=== PATIENT | female | born 1950 | race African-American/Black ===

== ENCOUNTER 2021-08-05 21:56 | Inpatient (IN) | payer MEDICARE, OTHER ==
[~2021-08-05] VITALS: Ht 175.3 cm; Wt 82.1 kg
[2021-08-05 22:00] VITALS: BP 144/61
[2021-08-05] MEDS ORDERED: MAGNESIUM HYDROXIDE 400MG/5ML 30ML UDC PO PRN (22:45)
[2021-08-05] MEDS ORDERED: TRAMADOL 50MG TABLET PO PRN (22:45)
[2021-08-05] MEDS ORDERED: DIPHENHYDRAMINE 25MG CAPSULE PO PRN (22:45)
[2021-08-05] MEDS ORDERED: MELATONIN 3MG TABLET PO SCH (22:45)
[2021-08-05] MEDS ORDERED: DOCUSATE SODIUM 100MG CAPSULE PO SCH (22:45)
[2021-08-05] MEDS ORDERED: CLONIDINE 0.1MG TABLET PO PRN (22:45)
[2021-08-05] MEDS ORDERED: SENNOSIDES 8.6MG TABLET PO PRN (22:45)
[2021-08-05] MEDS ORDERED: DIPHENHYDRAMINE 50MG/ML VIAL IV PRN (22:45)
[2021-08-05] MEDS ORDERED: BISACODYL 10MG SUPP PR PRN (22:45)
[2021-08-05] MEDS ORDERED: LIDOCAINE 5% PATCH TOP PRN (22:45)
[2021-08-05] MEDS ORDERED: ACETAMINOPHEN 650MG SUPP PR PRN (22:45)
[2021-08-05] MEDS ORDERED: ACETAMINOPHEN 325MG TABLET PO PRN (22:45)
[2021-08-05 23:13] VITALS: BP 144/61
[2021-08-06] MEDS ORDERED: MELATONIN 3MG TABLET PO PRN (00:30)
[2021-08-06 07:42] VITALS: BP 132/62
[2021-08-06 07:46] LABS: BASOPHILS % 0.8 % (0.0-2.0); EOSINOPHILS % 0.5 % (0.0-5.0); HEMATOCRIT. 31.9 % (36.0-48.0); HEMOGLOBIN. 10.8 g/dL (12.0-16.0); LYMPHOCYTES % 22.3 % (20.0-50.0); MEAN CORPUSCULAR HEMOGLOBIN 27.7 pg (28.0-32.0); MEAN CORPUSCULAR VOLUME 81.5 fL (81.0-99.0); MEAN PLATELET VOLUME 8.5 fl (7.4-10.4); MONOCYTES % 6.3 % (2.0-8.0); NEUTROPHILS % 70.1 % (40.0-76.0); PLATELET 105 x1000/uL (130-400); RED BLOOD CELL COUNT 3.91 mill/uL (4.2-5.4); RED CELL DISTRIBUTION WIDTH 14.4 % (11.6-14.6)
[2021-08-06 07:51] LABS: CHLORIDE 107 mEq/L (98-107)
[2021-08-06] MEDS: POLYETHYLENE GLYCOL 3350 (17GM) 1 DOSE PACK PO SCH ×2 (09:00→09:16)
[2021-08-06] MEDS: DOCUSATE SODIUM 100MG CAPSULE PO SCH ×2 (09:15→20:25)
[2021-08-06] MEDS: METOPROLOL TARTRATE 25MG TABLET PO SCH ×2 (09:16→16:03)
[2021-08-06] MEDS: AMLODIPINE 10MG TABLET PO SCH (09:16)
[2021-08-06] MEDS: HEPARIN 5000 UNITS/ML VIAL SUBCUT SCH ×2 (09:22→20:26)
[2021-08-06] MEDS ORDERED: SODIUM POLYSTYRENE SULFONATE 15 G/60 ML BOT PO NR (11:00)
[2021-08-06 15:04] LABS: CLARITY URINE CLEAR (CLEAR); COLOR URINE YELLOW (YELLOW); KETONES URINE NEGATIVE (NEGATIVE); LEUKOCYTE ESTERASE URINE NEGATIVE (NEGATIVE); NITRITE URINE NEGATIVE (NEGATIVE); OCCULT BLOOD URINE NEGATIVE (NEGATIVE); PROTEIN URINE TRACE (NEGATIVE); UROBILINOGEN URINE 0.2 E.U./dL (0.2-1.0)
[2021-08-06 20:00] VITALS: BP 134/62
[2021-08-06] MEDS: ATORVASTATIN CALCIUM 40MG TABLET PO SCH (20:26)
[2021-08-07 07:57] LABS: BASOPHILS % 0.8 % (0.0-2.0); EOSINOPHILS % 0.5 % (0.0-5.0); HEMATOCRIT. 31.5 % (36.0-48.0); HEMOGLOBIN. 10.8 g/dL (12.0-16.0); LYMPHOCYTES % 21.1 % (20.0-50.0); MEAN CORPUSCULAR HEMOGLOBIN 27.5 pg (28.0-32.0); MEAN CORPUSCULAR VOLUME 80.4 fL (81.0-99.0); MONOCYTES % 4.8 % (2.0-8.0); NEUTROPHILS % 72.8 % (40.0-76.0); PLATELET 77 x1000/uL (130-400); RED BLOOD CELL COUNT 3.91 mill/uL (4.2-5.4); RED CELL DISTRIBUTION WIDTH 14.8 % (11.6-14.6)
[2021-08-07 08:00] VITALS: BP 133/82
[2021-08-07 08:02] LABS: CHLORIDE 110 mEq/L (98-107)
[2021-08-07 08:16] LABS: TOTAL IRON BINDING CAPACITY 413 ug/dL (250-450)
[2021-08-07] MEDS: DOCUSATE SODIUM 100MG CAPSULE PO SCH ×2 (09:00→21:00)
[2021-08-07] MEDS: POLYETHYLENE GLYCOL 3350 (17GM) 1 DOSE PACK PO SCH (09:00)
[2021-08-07] MEDS: AMLODIPINE 10MG TABLET PO SCH (09:27)
[2021-08-07] MEDS: METOPROLOL TARTRATE 25MG TABLET PO SCH ×2 (09:27→17:12)
[2021-08-07] MEDS: ALLOPURINOL 100 MG TABLET PO SCH (09:27)
[2021-08-07 09:28] LABS: FOLIC ACID (FOLATE) SERUM 6.8 ng/mL (>5.38)
[2021-08-07] MEDS: HEPARIN 5000 UNITS/ML VIAL SUBCUT SCH (09:28)
[2021-08-07] MEDS: CYANOCOBALAMIN 1000MCG/ML VIAL IM SCH (12:17)
[2021-08-07 20:00] VITALS: BP 132/80
[2021-08-07] MEDS: ATORVASTATIN CALCIUM 40MG TABLET PO SCH (21:17)
[2021-08-07] MEDS: IRON SUCROSE COMPLEX 100 MG/5 ML ML IV SCH (22:23)
[2021-08-07 22:28] LABS: ETHANOL BLOOD < 10 mg/dL
[2021-08-08 05:48] LABS: BASOPHILS % 0.8 % (0.0-2.0); EOSINOPHILS % 0.7 % (0.0-5.0); HEMATOCRIT. 29.4 % (36.0-48.0); LYMPHOCYTES % 20.2 % (20.0-50.0); MEAN CORPUSCULAR HEMOGLOBIN 27.3 pg (28.0-32.0); MEAN CORPUSCULAR VOLUME 80.4 fL (81.0-99.0); MEAN PLATELET VOLUME 8.7 fl (7.4-10.4); MONOCYTES % 8.1 % (2.0-8.0); NEUTROPHILS % 70.2 % (40.0-76.0); PLATELET 78 x1000/uL (130-400); RED BLOOD CELL COUNT 3.65 mill/uL (4.2-5.4); RED CELL DISTRIBUTION WIDTH 14.7 % (11.6-14.6)
[2021-08-08 08:00] VITALS: BP 132/59
[2021-08-08] MEDS: POLYETHYLENE GLYCOL 3350 (17GM) 1 DOSE PACK PO SCH (09:00)
[2021-08-08] MEDS: DOCUSATE SODIUM 100MG CAPSULE PO SCH ×2 (10:41→21:26)
[2021-08-08] MEDS: METOPROLOL TARTRATE 25MG TABLET PO SCH ×2 (10:42→18:00)
[2021-08-08] MEDS: AMLODIPINE 10MG TABLET PO SCH (10:43)
[2021-08-08] MEDS: CYANOCOBALAMIN 1000MCG/ML VIAL IM SCH (10:43)
[2021-08-08] MEDS ORDERED: BARIUM SULFATE 176 GM SUSP.RECON ONE (10:54)
[2021-08-08] MEDS: IRON SUCROSE COMPLEX 100 MG/5 ML ML IV SCH (15:34)
[2021-08-08 20:00] VITALS: BP 139/63
[2021-08-08] MEDS: LACTULOSE 20G/30ML UDC PO SCH (21:26)
[2021-08-08] MEDS: ATORVASTATIN CALCIUM 40MG TABLET PO SCH (21:26)
[2021-08-09] MEDS: LACTULOSE 20G/30ML UDC PO SCH ×3 (06:00→20:58)
[2021-08-09 08:00] VITALS: BP 125/61
[2021-08-09] MEDS ORDERED: SODIUM POLYSTYRENE SULFONATE 15 G/60 ML BOT PO NR (08:30)
[2021-08-09] MEDS: POLYETHYLENE GLYCOL 3350 (17GM) 1 DOSE PACK PO SCH (09:00)
[2021-08-09] MEDS: ALLOPURINOL 100 MG TABLET PO SCH (09:50)
[2021-08-09] MEDS: CYANOCOBALAMIN 1000MCG/ML VIAL IM SCH (09:50)
[2021-08-09] MEDS: METOPROLOL TARTRATE 25MG TABLET PO SCH ×2 (09:51→17:30)
[2021-08-09] MEDS: AMLODIPINE 10MG TABLET PO SCH (09:51)
[2021-08-09] MEDS: DOCUSATE SODIUM 100MG CAPSULE PO SCH ×2 (09:51→20:59)
[2021-08-09] MEDS: IRON SUCROSE COMPLEX 100 MG/5 ML ML IV SCH (13:16)
[2021-08-09 20:00] VITALS: BP 138/63
[2021-08-09] MEDS: ATORVASTATIN CALCIUM 40MG TABLET PO SCH (20:58)
[2021-08-10] MEDS: LACTULOSE 20G/30ML UDC PO SCH ×2 (06:00→13:55)
[2021-08-10 06:17] LABS: BASOPHILS % 0.6 % (0.0-2.0); EOSINOPHILS % 0.5 % (0.0-5.0); HEMATOCRIT. 29.9 % (36.0-48.0); HEMOGLOBIN. 10.6 g/dL (12.0-16.0); LYMPHOCYTES % 12.8 % (20.0-50.0); MEAN CORPUSCULAR HEMOGLOBIN 28.8 pg (28.0-32.0); MEAN CORPUSCULAR VOLUME 81.2 fL (81.0-99.0); MEAN PLATELET VOLUME 9.1 fl (7.4-10.4); MONOCYTES % 5.3 % (2.0-8.0); NEUTROPHILS % 80.8 % (40.0-76.0); PLATELET 76 x1000/uL (130-400); RED BLOOD CELL COUNT 3.68 mill/uL (4.2-5.4)
[2021-08-10 06:27] LABS: CHLORIDE 108 mEq/L (98-107)
[2021-08-10 08:00] VITALS: BP 132/61
[2021-08-10] MEDS: METOPROLOL TARTRATE 25MG TABLET PO SCH ×2 (09:40→17:00)
[2021-08-10] MEDS: AMLODIPINE 10MG TABLET PO SCH (09:41)
[2021-08-10] MEDS: DOCUSATE SODIUM 100MG CAPSULE PO SCH ×2 (09:41→20:45)
[2021-08-10] MEDS: POLYETHYLENE GLYCOL 3350 (17GM) 1 DOSE PACK PO SCH (09:41)
[2021-08-10] MEDS ORDERED: ALBUTEROL (0.083%) 2.5MG/3ML NEB HHN NR (11:00)
[2021-08-10] MEDS ORDERED: NALOXONE HCL 0.4MG/ML VIAL IV PRN (11:00)
[2021-08-10 20:00] VITALS: BP 147/64
[2021-08-10] MEDS: ATORVASTATIN CALCIUM 40MG TABLET PO SCH (20:46)
[2021-08-11 08:00] VITALS: BP 121/61
[2021-08-11] MEDS: ALLOPURINOL 100 MG TABLET PO SCH (08:56)
[2021-08-11] MEDS: AMLODIPINE 10MG TABLET PO SCH (08:57)
[2021-08-11] MEDS: METOPROLOL TARTRATE 25MG TABLET PO SCH ×2 (08:57→16:38)
[2021-08-11] MEDS: POLYETHYLENE GLYCOL 3350 (17GM) 1 DOSE PACK PO SCH (09:00)
[2021-08-11] MEDS: DOCUSATE SODIUM 100MG CAPSULE PO SCH ×2 (09:00→20:39)
[2021-08-11 10:04] LABS: BASOPHILS % 0.7 % (0.0-2.0); EOSINOPHILS % 0.6 % (0.0-5.0); HEMATOCRIT. 32.8 % (36.0-48.0); LYMPHOCYTES % 17.4 % (20.0-50.0); MEAN CORPUSCULAR VOLUME 80.8 fL (81.0-99.0); MEAN PLATELET VOLUME 9.3 fl (7.4-10.4); MONOCYTES % 3.9 % (2.0-8.0); NEUTROPHILS % 77.4 % (40.0-76.0); PLATELET 84 x1000/uL (130-400); RED BLOOD CELL COUNT 4.06 mill/uL (4.2-5.4); RED CELL DISTRIBUTION WIDTH 14.7 % (11.6-14.6)
[2021-08-11 20:00] VITALS: BP 130/88
[2021-08-11] MEDS: ATORVASTATIN CALCIUM 40MG TABLET PO SCH (20:39)
[2021-08-12 08:00] VITALS: BP 126/57
[2021-08-12 09:01] VITALS: BP 126/57
[2021-08-12] MEDS: POLYETHYLENE GLYCOL 3350 (17GM) 1 DOSE PACK PO SCH (09:07)
[2021-08-12] MEDS: DOCUSATE SODIUM 100MG CAPSULE PO SCH ×2 (09:07→20:48)
[2021-08-12] MEDS: METOPROLOL TARTRATE 25MG TABLET PO SCH ×2 (09:08→16:18)
[2021-08-12] MEDS: AMLODIPINE 10MG TABLET PO SCH (09:08)
[2021-08-12 15:09] LABS: 25-HYDROXY VITAMIN D3 6.7 ng/mL (.)
[2021-08-12 20:00] VITALS: BP 121/66
[2021-08-12] MEDS: ATORVASTATIN CALCIUM 40MG TABLET PO SCH (20:47)
[2021-08-13] MEDS ORDERED: AMLO10TA80 PO (07:55)
[2021-08-13] MEDS ORDERED: LIP40 PO (07:55)
[2021-08-13 08:00] VITALS: BP 141/56
[2021-08-13] MEDS: POLYETHYLENE GLYCOL 3350 (17GM) 1 DOSE PACK PO SCH ×2 (09:00→09:03)
[2021-08-13] MEDS: ALLOPURINOL 100 MG TABLET PO SCH (09:02)
[2021-08-13] MEDS: DOCUSATE SODIUM 100MG CAPSULE PO SCH (09:03)
[2021-08-13] MEDS: METOPROLOL TARTRATE 25MG TABLET PO SCH (09:03)
[2021-08-13] MEDS: AMLODIPINE 10MG TABLET PO SCH (09:06)
[2021-08-13] MEDS ORDERED: ERGOCALCIFEROL 50000UNITS CAPSULE PO SCH (09:29)
[2021-08-13 13:15] VITALS: BP 141/56
== END 2021-08-13 13:50 | disposition home health service (06) | DRG 52 ==
PROVIDERS: ADMIT Physical Medicine & Rehabilitation Spinal Cord Injury Medicine; ATTEND Specialist
DX: G92.8 Other toxic encephalopathy (principal); A41.9 Sepsis, unspecified organism; E43 Unspecified severe protein-calorie malnutrition; D69.6 Thrombocytopenia, unspecified; N17.9 Acute kidney failure, unspecified; I13.0 Hypertensive heart and chronic kidney disease with heart failure and stage 1 through stage 4 chronic kidney disease, or unspecified chronic kidney disease; I50.9 Heart failure, unspecified; E87.1 Hypo-osmolality and hyponatremia; I69.351 Hemiplegia and hemiparesis following cerebral infarction affecting right dominant side; C34.90 Malignant neoplasm of unspecified part of unspecified bronchus or lung; E87.5 Hyperkalemia; D64.9 Anemia, unspecified; N39.0 Urinary tract infection, site not specified; N18.30 Chronic kidney disease, stage 3 unspecified; R47.1 Dysarthria and anarthria; M10.9 Gout, unspecified; R53.81 Other malaise; R74.01 Elevation of levels of liver transaminase levels; M19.90 Unspecified osteoarthritis, unspecified site; M47.816 Spondylosis without myelopathy or radiculopathy, lumbar region; M17.12 Unilateral primary osteoarthritis, left knee; E55.9 Vitamin D deficiency, unspecified; E53.8 Deficiency of other specified B group vitamins; I16.0 Hypertensive urgency; E78.5 Hyperlipidemia, unspecified; Z92.21 Personal history of antineoplastic chemotherapy; I69.320 Aphasia following cerebral infarction; Z92.3 Personal history of irradiation; Z82.49 Family history of ischemic heart disease and other diseases of the circulatory system; Z68.26 Body mass index [BMI] 26.0-26.9, adult; K80.20 Calculus of gallbladder without cholecystitis without obstruction; M11.262 Other chondrocalcinosis, left knee; K57.30 Diverticulosis of large intestine without perforation or abscess without bleeding
CPT/HCPCS: 36415; 70551; 74230; 80048; 80053; 80320; 81003; 82140; 82306; 82607; 82728; 82746; 83036; 83540; 83550; 84134; 84439; 84443; 84481; 85025; 92523; 92610; 92611; 93970; 97110; 97116; 97162; 97166; 97530; 97535; C1893; J1644; J3420; G0480